=== PATIENT | female | born 1945 | race Caucasian/White ===

== ENCOUNTER 2021-09-23 11:05 | Outpatient (REF) | payer MEDICARE, SELFPAY ==
--- NOTE | ~2021-09-23 | XR_ITS ---
EXAMINATION: XR LUMBOSACRAL SPINE CLINICAL INFORMATION: Low back pain COMPARISON: None TECHNIQUE: Three views of the lumbosacral spine. FINDINGS: There is curvature of the mid lumbar spine to the right. There is a 6 mm anterior subluxation of L4 with respect L5. Bone alignment is otherwise normal. No fracture or dislocation. 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 There is degenerative disc disease at L4-L5 and L5-S1. There is lower lumbar spine facet arthritis. XR/XR lumbar spine 2-3V IMPRESSION: Scoliosis and degenerative changes.
== END 2021-09-23 11:06 | disposition home or self-care (01) ==
LOC: HO.XRAY 11:05
PROVIDERS: Visit Provider Chiropractor
DX: M54.50 Low back pain, unspecified (principal)
CPT/HCPCS: 72100